=== PATIENT | male | born 1950 | race Caucasian/White ===

== ENCOUNTER 2020-10-31 15:22 | Emergency (ER) | payer OTHER, MEDICAID ==
[~2020-10-31] VITALS: Ht 175.3 cm; Wt 74.8 kg
[2020-10-31 15:31] VITALS: BP 120/68
--- NOTE | 2020-10-31 15:44 | NUR ---
Pt biba for altered mental status. Pt was found riding a [place]ylce [place] the [employer] [place] to get to [place]. Pt A&O x1. Per pt daughter, this is pt baseline. Pt has hx of Alzheimer and enlarged prostate. Pt has no complaints at this time. Denies pain. Pain level 0/10. Allergies: NKA Med hx: Alzheimers and Enlarged Prostate.
--- NOTE | 2020-10-31 15:45 | NUR ---
Pt daughter Char is coming to [employer] pick[employer] pt. ETA 1 hour.
--- NOTE | 2020-10-31 17:04 | NUR ---
Pt daughter here to picket [employer] pt. Patient discharged with v/s stable. Written and verbal after care instructions given and explained. Patient verbalized understanding. Ambulatory with steady gait. All questions addressed prior to discharge. Advised to follow up with PMD.
== END 2020-10-31 17:05 | disposition home or self-care (01) ==
LOC: MED 15:22
DX: R41.82 Altered mental status, unspecified (principal); F03.90 Unspecified dementia, unspecified severity, without behavioral disturbance, psychotic disturbance, mood disturbance, and anxiety
CPT/HCPCS: 99283; 99284